=== PATIENT | female | born 1985 | race Caucasian/White ===

== ENCOUNTER → 2024-11-08 13:35 | Outpatient (REF) | payer OTHER, SELFPAY | LOC: RCS 13:35 | PROVIDERS: ATTENDING PHYSICIAN Internal Medicine Interventional Cardiology; FAMILY PHYSICIAN Family Medicine | DX: R07.9 Chest pain, unspecified (principal); Z82.49 Family history of ischemic heart disease and other diseases of the circulatory system | CPT/HCPCS: 93017; 93350 ==

== ENCOUNTER → 2024-11-10 13:56 | Outpatient (REF) | payer OTHER, SELFPAY | LOC: RCS 13:56 | PROVIDERS: ATTENDING PHYSICIAN Internal Medicine Interventional Cardiology; FAMILY PHYSICIAN Family Medicine | DX: R07.9 Chest pain, unspecified (principal); Z82.49 Family history of ischemic heart disease and other diseases of the circulatory system | CPT/HCPCS: 93306 ==

== ENCOUNTER → 2025-01-10 09:36 | Outpatient (REF) | payer OTHER, SELFPAY ==
[2025-01-10 10:23] LABS: % Eosinophils 9.1 % (0-6); % Immature Granulocytes 0.2 % (0-0.5); % Lymphocytes 36.2 % (20.5-51.1); % Monocytes 6.4 % (1.7-9.3); % Neutrophils 47.1 % (42.2-75.2); Absolute Eosinophils 0.4 10^3/uL (0-0.7); Absolute Lymphocytes 1.5 10^3/uL (1.2-3.4); Absolute Monocytes 0.3 10^3/uL (0.1-0.6); Absolute Neutrophils 1.9 10^3/uL (1.4-6.5); Hematocrit 38.8 % (37.0-47.0); Hemoglobin 12.7 g/dL (12.0-16.0); Mean Corp Hgb Conc. 32.7 g/dL (33.0-37.0); Mean Corpuscular Hgb 28.5 pg (27.0-31.0); Mean Corpuscular Volume 87.2 fL (81.0-99.0); Mean Platelet Volume 9.7 fL (7.4-10.4); Nucleated Red Blood Cells % 0 %; Platelet Count 210 10^3/uL (130-400); Red Blood Cell Count 4.45 10^6/uL (4.20-5.40); Red Cell Dist. Width 13.1 % (11.5-14.5); White Blood Cell Count 4.1 10^3/uL (4.8-10.8)
[2025-01-10 10:54] LABS: Glycohemoglobin (HgbA1c) 5.8 % (4.0-5.6)
[2025-01-10 11:01] LABS: ALT (SGPT) 23 U/L (0-35); AST (SGOT) 26 U/L (14-36); Albumin 4.7 g/dl (3.5-5.0); Alkaline Phosphatase 41 U/L (38-126); Blood Urea Nitrogen 13 mg/dl (7-17); Calcium 9.2 mg/dl (8.4-10.2); Carbon Dioxide 28 mmol/L (22-30); Chloride 106 mmol/L (98-107); Glucose 92 mg/dl (70-99); HDL Cholesterol 68 mg/dl; LDL Cholesterol, Calculated 114 mg/dl; Potassium 4.3 mmol/L (3.5-5.1); Sodium 141 mmol/L (135-145); Total Bilirubin 0.6 mg/dl (0.2-1.3); Total Cholesterol 194 mg/dl (50-199); Total Protein 7.6 g/dl (6.3-8.2); Triglyceride 63 mg/dl (10-149); Very Low Density Lipoprotein 12 mg/dl (0-30); eGFR > 60.00
[2025-01-12 12:47] LABS: Apolipoprotein B 89 mg/dL (60-117)
[2025-01-12 13:32] LABS: Lipoprotein a (Lp a) 67 mg/dL (<=29)
== END ==
LOC: REG 09:36
PROVIDERS: ATTENDING PHYSICIAN Internal Medicine Interventional Cardiology; FAMILY PHYSICIAN Family Medicine
DX: R07.9 Chest pain, unspecified (principal); Z82.49 Family history of ischemic heart disease and other diseases of the circulatory system
CPT/HCPCS: 36415; 80053; 80061; 82172; 83036; 83695; 85025

== ENCOUNTER 2025-05-23 13:52 | Emergency (ER) | payer OTHER, SELFPAY ==
[2025-05-23 13:54] VITALS: BP 126/79
[2025-05-23 14:08] LABS: Hematocrit 39.0 % (37.0-47.0); Hemoglobin 12.7 g/dL (12.0-16.0); Mean Corp Hgb Conc. 32.6 g/dL (33.0-37.0); Mean Corpuscular Volume 85.3 fL (81.0-99.0); Nucleated Red Blood Cells % 0 %; Platelet Count 226 10^3/uL (130-400); Red Cell Dist. Width 13.5 % (11.5-14.5)
[2025-05-23 14:24] LABS: HCG, Serum Qualitative Screen Negative
[2025-05-23 14:30] LABS: ALT (SGPT) 20 U/L (0-35); AST (SGOT) 29 U/L (14-36); Albumin 4.9 g/dl (3.5-5.0); Alkaline Phosphatase 32 U/L (38-126); Blood Urea Nitrogen 16 mg/dl (7-17); Calcium 9.3 mg/dl (8.4-10.2); Carbon Dioxide 26 mmol/L (22-30); Chloride 105 mmol/L (98-107); Glucose 86 mg/dl (70-99); Potassium 4.0 mmol/L (3.5-5.1); Sodium 139 mmol/L (135-145); Total Protein 8.4 g/dl (6.3-8.2); eGFR > 60.00
[2025-05-23 14:44] LABS: Troponin I < 0.012 ng/ml
--- NOTE | 2025-05-23 15:47 | ED.GENMED ---
History of Present Illness
General
Chief Complaint: Cardiac Symptoms
Time Seen by Provider: 05/23/25 15:47
History of Present Illness
History of Present Illness:
FOCUSED PAST MEDICAL HISTORY
- The patient has a history of skin cancer
REVIEW OF OLD RECORDS
- The patient gave here 2020
Note:
CHIEF COMPLAINT(S)
Numbness and unusual sensation in the left arm, stress-related symptoms, and concern for potential cardiac issues.
HISTORY OF PRESENT ILLNESS
The patient is a 39-year-old female with a history of mitral valve regurgitation that has been stable for approximately 10 years. She presented with concerns regarding recent stress-related symptoms. A week ago, she experienced numbness and an
unusual sensation in her left arm. The symptoms gradually improved and were not persistent every day. She expressed a particular concern about her heart, noting previous evaluations including echocardiograms and stress echocardiograms which
reportedly showed no structural abnormalities apart from the mitral regurgitation.
Additionally, she reports sporadic episodes of numbness and sensation variations that often correlate with stress, describing it as a 'band around the upper arm' and 'pressure in her jaw.' The symptoms are reportedly reproducible with stressful
stimuli. 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
The patient also reported anxiety over her family situation, including a family member currently dealing with substance abuse, which has added to her stress. She recently resumed therapy but has no thoughts of self-harm and feels positive about life
despite the challenges.
All recent cardiac evaluations, including her most recent troponin, were indicated to be within normal limits.
ADDITIONAL HISTORY OBTAINED FROM SOURCES OTHER THAN THE PATIENT
The patient was referred by her primary care providers office following the nurses suggestion to avoid an acute appointment and seek evaluation at the emergency room instead.
CHRONIC MEDICAL CONDITIONS SIGNIFICANTLY AFFECTING CARE
- Stable mitral valve regurgitation for approximately 10 years.
SOCIAL DETERMINANTS AFFECTING HEALTH
The patient is experiencing significant stress due to a family member who is currently dealing with active addiction and is concerned for her two children. Her role as a caregiver and primary support for her children adds to her overall stress.
REVIEW OF SYSTEMS
- Neuro: Reports numbness and unusual sensation in the left arm.
- Cardiovascular: Concern about cardiac symptoms correlating with stress; recent cardiac evaluation shows stable findings.
- Psychiatric: Recent resumption of therapy; no suicidal ideation; anxiety related to family situation and stress.
PHYSICAL EXAM
General: Alert, no acute distress.
Skin: Warm, dry.
Head: Normocephalic, atraumatic.
Neck: Supple, trachea midline.
Eye Ears, nose, mouth and throat: Oral mucosa moist.
Cardiovascular: Normal peripheral perfusion, no edema. Excellent pulses in the left upper extremity
Respiratory: Respirations are non-labored.
Gastrointestinal: Abdomen nondistended.
Back: Normal range of motion, Normal alignment.
Musculoskeletal: Normal range of motion, normal strength. Strength in upper extremities intact on examination. Normal sensation to the left upper extremity
Neurological: Alert and oriented to person, place, time, and situation, No focal neurological deficit observed.
Psychiatric: Cooperative, appropriate mood & affect.
PROBLEM LIST
- Acute: Numbness and unusual sensation in the left arm, stress-related symptoms.
- Chronic: Mitral valve regurgitation.
PLAN
The patient is advised to continue therapy given her stress levels and potentially explore stress-reducing techniques. Follow-up with her stockroom keeper is recommended to address any ongoing concerns regarding her cardiac health, especially in light
of her symptoms possibly being attributed to stress and anxiety. Encouragement to maintain support systems and possibly engage in regular counseling to alleviate stress related to family challenges.
DIFFERENTIAL DIAGNOSIS
The differential diagnosis includes, in no particular order and is not limited to:
1. Anxiety-related somatic symptoms
2. Cervical radiculopathy
3. Peripheral neuropathy
4. Carpal tunnel syndrome
5. Cardiac ischemia
6. Thoracic outlet syndrome
7. Stress-induced cardiomyopathy
8. Myofascial pain syndrome
9. Hypertension-related headaches
10. Psychogenic pain disorder
Disposition:
SUMMARY OF ENCOUNTER
The patient, a 39-year-old female with a history of stable mitral valve regurgitation, presented with concerns about numbness and an unusual sensation in her left arm, primarily related to stress. She was evaluated in the emergency department given
her symptoms and concern for potential cardiac issues. An EKG was performed, showing results comparable to a prior one in 2020, revealing a possible incomplete right bundle branch block. No acute cardiac abnormalities were identified. Stress was
considered a contributing factor. It was determined there was no immediate need for further neuroimaging or procedures, such as a CT scan, due to the low likelihood of significant findings such as MS or blood clots at this time.
DISPOSITION
Discharge
ASSESSMENT
The patients symptoms are likely stress-related, with no acute cardiac or neurological abnormalities identified during this evaluation.
PLAN
Advise the patient to continue with stress management techniques and therapy. Recommend follow-up with her stockroom keeper regarding the incomplete right bundle branch block noted on the EKG, and encourage maintaining support systems to manage stress
related to her family situation.
PATIENT EDUCATION AND COUNSELING
The patient was informed about the benign nature of an incomplete right bundle branch block, reassured about the absence of acute cardiac concerns, and advised on the importance of addressing stress and anxiety through therapy and other relaxation
techniques.
MEDICAL DECISION MAKING
- Number and Complexity of Problems Addressed: Chronic conditions affecting care include stable mitral valve regurgitation. Differential Diagnosis: Anxiety-related somatic symptoms, Cervical radiculopathy, Peripheral neuropathy, Carpal tunnel
syndrome, Cardiac ischemia, Thoracic outlet syndrome, Stress-induced cardiomyopathy, Myofascial pain syndrome, Hypertension-related headaches, Psychogenic pain disorder.
- Data:
- Category 1: Clinical information was obtained from an independent historian regarding prior EKG comparison (from additional history obtained section).
- Category 2: My independent interpretation of the EKG suggests a possible incomplete right bundle branch block, consistent with prior EKG.
- Risk: Social stressors significantly affect health, particularly due to family situation.
DIAGNOSIS
- Stress-related somatic symptoms (ICD-10: F43.23)
- Incomplete right bundle branch block (ICD-10: I45.4)
- History of stable mitral valve regurgitation (ICD-10: I34.0)
EKG
- Sinus 60, incomplete right bundle block, no acute ST or malady
LABS
- CBC normal, chemistries unremarkable, hCG negative, troponin less than 0.012
Past History
Past History
ED Past Medical History: None
ED Past Surgical History: None
Phy Exam
Physical Exam
Physical Exam:
See HPI
Course
Orders/Labs/Results
Orders:
Orders
05/23/25 13:57
Electrocardiogram (*1) Urgent
Reason for Study: Chest Pain
EKG- Treatment ONCE
Test Result ONCE
05/23/25 14:02
Complete Blood Count/With Diff Urgent
Comprehensive Metabolic Panel Urgent
HCG, Serum Qualitative Screen Urgent
Comment: Notify provider if positive test present
Troponin I Urgent
Abnormal Lab Results
05/23/25
14:02
MCHC 32.6 L g/dL
(33.0-37.0)
Alkaline Phosphatase 32 L U/L
(38-126)
Total Protein 8.4 H g/dl
(6.3-8.2)
05/23/25 14:02
05/23/25 14:02
Vital Signs
Initial and Last Documented VS:
Initial Vital Signs
Temp Pulse Resp BP Pulse Ox
36.6 C 65 16 126/79 100
05/23/25 13:54 05/23/25 13:54 05/23/25 13:54 05/23/25 13:54 05/23/25 13:54
Last Documented Vital Signs
Temp Pulse Resp BP Pulse Ox
36.6 C 64 12 126/79 100
05/23/25 13:54 05/23/25 16:06 05/23/25 16:06 05/23/25 13:54 05/23/25 16:06
*Pulse Oximetry
SaO2: 100
Oxygen Mode of Delivery: Room air
Patient hypoxic: no
*Critical Care Note
Total Time (30-74mins, 75-104mins- exclusive of procedures): Not Applicable
ED Attending Note
-
Portions of this chart may have been created with voice recognition software.� Occasional wrong word or��sound alike� substitutions may have occurred due to the inherent limitations of voice recognition software.
Discharge Plan
Departure
Patient Disposition: Home (Routine Discharge)
Date of Disposition: 05/23/25
Time of Disposition: 16:12
Patient with high blood pressure during this ER visit?: Yes
Discharge Problem:
Paresthesia, Chest pain
Instructions: Chest Pain DCA Follow Up
Prescriptions:
No Action
PNV no.95-ferrous fumarate-FA [] 1 EACH tablet
1 ea PO DAILY
acetaminophen 325 MG tablet
650 mg PO Q4HPRN PRN (Reason: mild pain) 0RF
sennosides-docusate sodium 1 TABLET tablet
1 tab PO DAILYPRN PRN (Reason: constipation) 0RF
ibuprofen 600 MG tablet
600 mg PO Q4HPRN PRN (Reason: moderate pain/cramps) 0RF
Referrals:
Migue Aly DO [Family Provider, Family Practice]
Vero Stanford MD [Active, Cardiology]
Activity Restrictions/Additional Instructions:
I recommend that you follow-up with Dr. Stanford. Return here if worse or other concerns.
Interventions
Interventions:
*Risk Screen - Suicide Last Done: 05/23/25 13:54
*Neglect/Abuse Screening Last Done: 05/23/25 13:54
ED- Pulmonary Assessment Last Done: 05/23/25 16:07
ED- Cardiac Assessment Last Done: 05/23/25 16:07
Discharge Date and Time
Print Language: DIVEHI
== END 2025-05-23 16:30 | disposition home or self-care (01) ==
LOC: EMR 13:52
PROVIDERS: Student in an Organized Health Care Education/Training Program; EMERGENCY PHYSICIAN Emergency Medicine; FAMILY PHYSICIAN Family Medicine
DX: R20.2 Paresthesia of skin (principal); R07.9 Chest pain, unspecified; I45.10 Unspecified right bundle-branch block; I34.0 Nonrheumatic mitral (valve) insufficiency; Z63.8 Other specified problems related to primary support group; Z85.828 Personal history of other malignant neoplasm of skin
CPT/HCPCS: 99284; 80053; 84484; 84703; 85025; 93005

== ENCOUNTER → 2025-09-05 12:11 | Outpatient (REF) | payer OTHER, SELFPAY ==
[2025-09-05 13:19] LABS: Blood Urea Nitrogen 16 mg/dl (7-17); Calcium 8.9 mg/dl (8.4-10.2); Carbon Dioxide 26 mmol/L (22-30); Chloride 104 mmol/L (98-107); Glucose 79 mg/dl (70-99); Potassium 4.2 mmol/L (3.5-5.1); Sodium 135 mmol/L (135-145); eGFR > 60.00
== END ==
LOC: REG 12:11
PROVIDERS: ATTENDING PHYSICIAN Nurse Practitioner; FAMILY PHYSICIAN Family Medicine
DX: R07.9 Chest pain, unspecified (principal); R00.2 Palpitations
CPT/HCPCS: 36415; 80048